=== PATIENT | male | born 1940 | race Caucasian/White ===

== ENCOUNTER 2016-12-22 10:34 | Day surgery (SDC) | payer OTHER ==
[~2016-12-22] VITALS: Ht 182.9 cm; Wt 86.0 kg
[2016-12-22] VITALS (8 sets, daily range): BP systolic 112–144; BP diastolic 55–75; PULSE 49–68; RESP 16–25; O2SAT 97–100
[~2016-12-22 10:34] MED LIST: AZU500 PO; CALC-243 PO; CHOL500011 PO; CIPR-231 PO; COCO1000 PO; CeFAZolin Inj 2 GM in IV Premix 1 EACH IV ONE; EPIN0.3P2 IJ; FLUT9.9S NS; HYDR-4003 PO; IBUP800T28 PO; LACT1TAB12 PO; Lactated Ringer's 1,000 ML IV SCH; MULT-1018 PO; OMEG-38 PO; TAMS0.4C98 PO; VIT1TABL83 PO; VITAMIN C PO; [UNRECOGNIZED DRUG - OTHER] PO
[2016-12-22] MEDS ORDERED: Ondansetron 2 mg/mL 2 mL Inj ONE (10:35)
[2016-12-22] MEDS ORDERED: Propofol 10,000 mCg/mL 20 mL Inj ONE (10:35)
[2016-12-22] MEDS ORDERED: Dexamethasone 4 mg/mL Inj ONE (10:35)
[2016-12-22] MEDS: Lactated Ringer's 1,000 ML IV SCH ×2 (10:37→13:14)
[2016-12-22] MEDS ORDERED: Levofloxacin 500 mg/100 mL D5W IV ONE (10:40)
[2016-12-22] MEDS ORDERED: Iopamidol-300 50 mL Inj IV ONE (13:14)
[2016-12-22] MEDS ORDERED: Lactated Ringer's 1,000 ML IV SCH (13:27)
[2016-12-22] MEDS ORDERED: Lactated Ringer's 500 ML IV PRN (13:27)
[2016-12-22] MEDS ORDERED: Ondansetron 2 mg/mL 2 mL Inj IVPUSH PRN (13:30)
[2016-12-22] MEDS ORDERED: MetoCLOpramide 5 mg/mL 2 mL Inj IVPUSH PRN (13:30)
[2016-12-22] MEDS ORDERED: fentaNYL-PF 50 mCg/mL 2 mL Inj IVPUSH PRN (13:30)
[2016-12-22] MEDS ORDERED: Phenylephrine 10,000 mCg/mL Inj IVPUSH PRN (13:30)
[2016-12-22] MEDS ORDERED: EPHEDrine Sulfate 50 mg/mL Inj IVPUSH PRN (13:30)
[2016-12-22] MEDS ORDERED: Labetalol 5 mg/mL 4 mL Inj IV PRN (13:30)
--- NOTE | 2016-12-22 13:44 | PCM.HPANE ---
Patient Data Surgeon Admitting Provider: Attending Provider:Chula Chen MD Primary Care Physician:Ananda Meredith MD Other Provider:[facility] Reason for Visit Right Ureteral Stone Ht/WT & BMI Height (Feet): 6 Height (Inches): 0.00 Weight (Kilograms): 86 Body Mass Index 25.00 Allergies Coded Allergies: Penicillins (Verified Allergy, Severe, rash, 12/21/16) Past Anesthesia History Anesthesia History: Denies:: Abnormal Airway, Anesthesia Reactions, Difficult Intubation, Fam Anesthesia Reaction, Fam Malignant Hypertherm, Malignant Hyperthermia Diabetes History Hx Diabetes?: No MRSA MRSA: No Medications Home Meds Incl Beta Sb: No Reported Medications Tamsulosin (Flomax)0.4 Mg Capsule0.4 Mg PO DAILY Ref 0 12/21/16 Hydrocodone-Acetaminophen 5-325 mg 1 Each Tablet1 Tablet PO Q6H PRN For Pain Ref 0 12/21/16 Ibuprofen 800 Mg [id number] Mg PO TID PRN For Pain Ref 0 12/21/16 Epinephrine (Epipen 2-Theodore)0.3 Mg/0.3 Ml Auto.injct0.3 Mg IJ PRN 12/21/16 Fluticasone Propionate (Flonase Allergy Relief)50 Mcg/Actuation [place].susp9.9 Ml NS DAILY PRN PRN 12/21/16 Coconut Oil 1,000 Mg Capsule1,000 Mg PO DAILY 12/21/16 Calcium Carbonate/Vitamin D3 (Calcium 600 + Vit D Tablet)1 Each Tablet1 Each PO DAILY 12/21/16 [Vitamin C& E] No Conflict Check1 Tab PO DAILY 12/21/16 Multivitamin (Multi Vitamin Daily)1 Each Tablet1 Each PO DAILY 30 Days Ref 0 12/21/16 Sulfasalazine 500 Mg [id number] Mg PO TIDWM 30 Days Ref 0 12/21/16 Ciprofloxacin (Cipro)500 Mg [id number] Mg PO BID Ref 0 X 10 DAYS START 12/11/16 12/21/16 Vit B Comp/C/FA/Iron/Vit E (Vitamin B Complex Tablet)1 Each Tablet1 Each PO DAILY 02/21/16 [place]-3/Dha/Epa/Fish Oil (Fish Oil 1,000 mg Softgel)1 Each Capsule7 Each PO DAILY 02/21/16 Lactobacillus Cmb#7/Fos/Inulin (Probiotic Complex Tablet)1 Each Tablet2 Each PO DAILY 02/21/16 Cholecalciferol (Vitamin D3) (Vitamin D3)5,000 Unit Tablet5,000 Unit PO DAILY 02/21/16 History History of ENT Problems?: Yes HEENT History: Positive for:: Sinus Problem (SEASONAL ALLERGIES) Denies:: Abnormal Airway Difficult Intubation Glaucoma (S/P EYE PROCEDURE) Hearing Problem Denture Type: None Teeth Condition: Within Normal Limits Hx of Heart Problems?: No Cardiovascular History: Denies:: AICD Abdominal Aortic Aneurism Atrial Fibrillation Cardiac Surgery Chest Pain Congestive Heart Failure Coronary Artery Disease Edema Heart Murmur Hypertension Irregular Heartbeat Pacemaker Peripheral Vascular Rheumatic Fever Thrombophlebitis Valvular Heart Disease Hx of Respiratory Problem?: No Respiratory History: Denies:: Asthma COPD Chest Surgery Cough Dyspnea Emphysema Hemoptysis Oxygen Administration Pneumonia Pulmonary Embolism Tuberculosis Use of C-PAP Machine Use of Inhalers / NEBS Hx Neurologic Problems?: No Neurological History: Denies:: Alzheimer's Disease CVA Dementia Dizziness Headaches Multiple Sclerosis Parkinson's Disease Peripheral Neuropathy Seizures TIA Hx of GI Problems?: Yes Gastrointestinal History: Denies:: Cirrhosis Diverticulitis Gall Bladder Disease Gastroesphageal Reflux Gastrointestinal Bleeding Heartburn Hepatitis Hiatal Hernia Liver Disease Rectal Bleeding Other GI Pertinent History: HX DIARRHEA & BRBPR Hx of Problems?: Yes Genitourinary History: Positive for:: Kidney Stones (HX PRIOR STONES RT URETERAL STONE=CURRENT PROBLEM) Denies:: HX of Hemodialysis Urinary Tract Infection HX of Peritoneal Dialysis: No Other Pertinent History: C/OF RT FLANK PAIN Male Hx: Denies:: Prostate Problems Scrotal Mass Testicular Surgery Skin History: Denies:: History Skin Disorders? Pressure Ulcers Hx Musculoskeletal Problems?: No Musculoskeletal History: Denies:: Back Injury Degenerative Joint Fibromyalgia Joint Replacement Musculoskeletal Trauma Myasthenia Gravis Osteoarthritis Rheumatoid Arthritis Systemic Lupus Hx of Psycho/Social Problems?: No Psycho Social History: Denies:: Anxiety Bipolar Disorder Hx Depression Suicide Attempt Hx Surgeries?: Yes (EYE PROCEDURE,RT HEMICOLECTOMY,PARTIAL SM BOWEL RESECTION) Hx Any Other Health Problems?: Yes Other History: Positive for:: Hospitalization Denies:: Cancer Endocrine Disease Thyroid Disease History Blood Transfusions: Denies:: Accept Blood Products? Blood Transfuse Reaction Blood Transfusions Hx Diabetes: No Hx Alcohol Use: YesAlcoholic Drinks Per Day: <1/WEEKHx Substance Use: No Smoking Status: Former Smoker Have You Smoked inLast 12 mo: No Stop/Bang S-Snoring: Do You Snore Loudly: No T-Tired: feel tired, fatigued: No O-Obsered: Observed not breath: No P-Blood Pressure: treated: No B- Body Mass Index > 35 kg/m2: No A- Age over 50: Yes N- Neck Large Circumference: No G- Gender Male: Yes NIMO Total Score: 2 Risk Assessment Category Category 1A: Patient has history of documented sleep apnea, and HAS NOT received any narcotic, sedative or anesthesia administration during this stay. Category 1B: Patient has history of documented sleep apnea, and HAS received any narcotic , sedative or anesthesia administration during this stay Category 2: Patient has SUSPECTED Obstructive Sleep Apnea, and HAS received any narcotic , sedative or anesthesia administration during this stay. Category 3: Patient has SUSPECTED Obstructive Sleep Apnea and HAS NOT received narcotic, sedative or anesthesia administration during this stay. Category 4: Outpatient in Procedural Areas with known sleep apnea or who screen positive for High Risk via the STOP/BANG questionnaire. Exam Exam Vital Signs Vital Signs Date Time Temp Pulse Resp B/P Pulse Ox O2 Delivery O2 Flow Rate FiO2 12/22/16 11:19 36.1 68 16 144/75 99 Room Air General Appearance: Alert, Oriented X3, Cooperative, No Acute Distress HEENT/AIRWAY: MP 2, Neck Movement (FROM), Mouth Opening (3 FBMO) Lungs: Clear to Auscultation, Normal Air Movement Heart: Exam Unremarkable, Regular Rate/Rhythm, No Murmurs/Rubs/Gallops Meds/Labs/Diagnostics Admission Meds Current Medications Lactated Ringer's (Lr) 1,000 ml @ 120 mls/hr Q8H20M IV Last administered on t 10:37; Start 12/22/16 at 05:00; Stop 12/22/16 at 13:19 Plan Impression Patient chart reviewed, patient interviewed and anesthestic plan with risks, benefits, and alternatives discussed, and informed consent obtained. NPO per Anesth. Guidelines: Yes ASA Physical Status: ASA2 Mod Systemic Disease Anesthetic Plan: GA Bene/Risks/Altern/Consents: Yes HP Complete Prior to Induction: Yes Sebastián Merrill MD December 22, 2016 11:51
--- NOTE | 2016-12-22 14:21 | DRSVH ---
PROCEDURE: X-RAY RETROGRADE UROGRAPHY INDICATIONS: RIGHT CYSTO STONE REMOVAL TECHNIQUE: 2 intra-operative images acquired by the Urology service. COMPARISON: [facility], [place], ABDOMEN/PELVIS WITH CONTRAST, 12/11/2016, 13:33. FINDINGS: Exam limited to submitted images. Within the limits of a small portion of the mid right u reter is visualized which is normal in course and caliber and there may be 2 small intraluminal filli ng defects, the most proximal of which is projected over the level of the right medial iliac bone and the distal projected over the distal right ureter near the ureterovesical junction. Ureteral stent was placed. IMPRESSION: 1. Limited exam demonstrating only a small portion of the distal ureter and are two possible intralum inal filling defects which may represent stones. Correlate with real-time exam. 2. Placement of ureteral stent. Dictated by: Juan Luis DYSON Interpreted: Clara Vee MD on 12/22/2016 at 14:18 Transcribed by: CHANELL on 12/22/2016 at 14:21 Approved by: Clara Vee MD, PhD on 12/22/2016 at 15:38
[2016-12-22] MEDS ORDERED: HYDROcodone-APAP 5-325 mg Tablet PO PRN (14:30)
--- NOTE | 2016-12-22 14:56 | PCM.ANEP1 ---
Post Anesthesia PACU Phase 1 Assessment Vital Signs Vital Signs Date Time Temp Pulse Resp B/P Pulse Ox O2 Delivery O2 Flow Rate FiO2 12/22/16 14:39 36.3 49 16 133/68 99 Room Air 12/22/16 14:30 52 17 131/64 97 Room Air 12/22/16 14:25 54 17 129/63 100 Room Air 12/22/16 14:20 36.4 50 18 112/55 99 Simple Mask 10 12/22/16 14:15 62 21 126/64 98 Simple Mask 10 12/22/16 14:11 36.5 53 25 136/65 97 Simple Mask 10 12/22/16 11:19 36.1 68 16 144/75 99 Room Air Anesthetic Administered: GA Level of Alertness: Awake, talking JONES's with Equal Strength: Yes Pain: No Nausea or Vomiting: No CV Function & Hydration Stable: No Airway Device: Oxygen Delivery: Room Air Lungs: Clear to Auscultation, Normal Air Movement Dermatome Level: Full Sensation PACU Phase 2 Assessment Complications: No Follow up Care: N/A Patient Instructions Provided: N/A Sebastián Merrill MD December 22, 2016 14:56
--- NOTE | 2016-12-22 22:47 | OP ---
[address] [address] OPERATIVE REPORT PATIENT: SHYLA REYES : 1940 MR#: [id number] ADMIT: 12/22/2016 JOB ID: [id number] DATE OF SURGERY: 12/22/2016 PREOPERATIVE DIAGNOSIS(ES): Right ureteral stone. POSTOPERATIVE DIAGNOSIS(ES): Right ureteral stone. PROCEDURE PERFORMED: 1. Cystoscopy and right retrograde pyelogram. 2. Right ureteroscopy with laser lithotripsy and stone basketing. 3. Right ureteral stent placement. SURGEON: Chula Chen MD. HOT WATER HEATER INSTALLER: None. FINDINGS: 1. Bulbar urethral stricture, mild, that was easily navigated past without dilation or manipulation. 2. Very hard right distal ureteral stone, 9 mm. ANESTHESIA: General. ESTIMATED BLOOD LOSS: Less than 2 mL. DRAINS: A 6 x 28 right double-J ureteral stent. SPECIMEN: Right ureteral stone. COMPLICATIONS: None. CONDITION: Stable. INDICATIONS FOR PROCEDURE: The patient is a 76-year-old gentleman with a right ureteral stone. He now presents for ureteroscopy. DESCRIPTION OF PROCEDURE: After informed consent was obtained, the patient was taken to the operating room. A time-out was performed identifying correct patient, surgical site, and procedure. General anesthesia was smoothly induced. He was given intravenous antibiotics just prior to the start of the procedure. He was placed in the lithotomy position and all pressure points were identified and appropriately padded. A 22-Syrian rigid cystoscope was applied to the patient's urethra and advanced. Upon entry into the bulbar urethra, there was seen a thin ring of stricture. It was of wide enough caliber to move beyond with the cystoscope without any special manipulation. Upon entry into the bladder, the bladder was drained. The bladder was systematically inspected. It was normal appearing. A 5-Syrian open-ended Pollack catheter was used to cannulate the right ureteral orifice. A retrograde pyelogram was performed. It was normal. Two Sensor tip wires were then advanced into the renal pelvis in succession. A semi-rigid ureteroscope was then used to navigate the distal ureter. There was a stone seen there consistent with the CT findings. A 273 micron laser fiber wire was used to break the stone into small pieces. A Zero Tip Nitinol basket was used to basket the stone fragments. These were passed off the table for stone analysis. The ureter was then inspected to the mid ureter with the ureteroscope. There were no further stone fragments seen. The ureteroscope was then removed under direct vision. The remaining Sensor tip wire was then backloaded in the cystoscope and a 6 x 28 double-J ureteral stent was placed over the wire and navigated to the right renal pelvis as seen under fluoroscopy. The wire was then removed leaving a nice coil in the patient's bladder as seen under direct vision. The bladder was then drained. The patient was then reversed from general anesthesia and taken to the PACU in good and stable condition. LANCE
[2017-01-01 14:12] LABS: Stone Color Brown (.)
== END 2016-12-22 23:59 | disposition home or self-care (01) ==
LOC: SAS 10:34
PROVIDERS: ATTEND Urology
PROC: 0T768DZ Dilation of Right Ureter with Intraluminal Device, Via Natural or Artificial Opening Endoscopic (ICD-10-PCS; 2016-12-22)
PROC: 0TF68ZZ Fragmentation in Right Ureter, Via Natural or Artificial Opening Endoscopic (ICD-10-PCS; principal; 2016-12-22 12:30)
DX: N20.1 Calculus of ureter (principal); Z90.49 Acquired absence of other specified parts of digestive tract; Z87.442 Personal history of urinary calculi; Z87.891 Personal history of nicotine dependence
CPT/HCPCS: 52356; 74420; 82360; C2617; J1100; J1885; J2405; J7120; Q9967